=== PATIENT | female | born 1960 | race Caucasian/White ===

== ENCOUNTER 2023-04-14 11:58 | Emergency (ER) | payer BC ==
[~2023-04-14] VITALS: Ht 152.4 cm; Wt 77.3 kg
[2023-04-14 12:33] VITALS: TEMP 98.6
[2023-04-14] MEDS ORDERED: [UNRECOGNIZED DRUG - REMARK] SQ (12:35)
[2023-04-14] MEDS ORDERED: METF-1211 PO (12:35)
[2023-04-14] MEDS ORDERED: IBUPROFEN 600 MG TABLET PO ONE (13:30)
[2023-04-14] MEDS ORDERED: IBUP-1492 PO (13:48)
[2023-04-14 13:59] VITALS: BP 130/60; PULSE 76; RESP 18
== END 2023-04-14 14:20 | disposition home or self-care (01) ==
LOC: EMS 12:04
DX: S93.402A Sprain of unspecified ligament of left ankle, initial encounter (principal); E11.9 Type 2 diabetes mellitus without complications; W19.XXXA Unspecified fall, initial encounter; Y93.89 Activity, other specified; Y92.89 Other specified places as the place of occurrence of the external cause; Y99.8 Other external cause status
CPT/HCPCS: 99283